=== PATIENT | female | born 1985 | race Caucasian/White ===

== ENCOUNTER 2020-07-03 21:11 | Emergency (ER) | payer OTHER ==
[~2020-07-03] VITALS: Ht 157.5 cm; Wt 79.4 kg
[2020-07-03 21:13] VITALS: Ht 157.5 cm; Wt 79.4 kg
[2020-07-03 22:36] VITALS: BP 132/78
== END 2020-07-03 22:36 | disposition home or self-care (01) ==
LOC: ED 21:11
DX: J02.9 Acute pharyngitis, unspecified (principal); J45.909 Unspecified asthma, uncomplicated